=== PATIENT | male | born 1940 | race Caucasian/White ===

== ENCOUNTER 2017-04-04 10:07 | Day surgery (SDC) | payer OTHER ==
[~2017-04-04] VITALS: Ht 177.8 cm; Wt 90.8 kg
[~2017-04-04 10:07] MED LIST: ALLO300 PO; ASCO500 PO; ASPI81EC PO; CIPR500 PO; ERGO400 PO; EZET10; FENO145 PO; GLIM2 PO; LISI20 PO; LOPE2C PO; METF500 PO; MULVITMIND PO; Omeprazole20 M1 PO; SIMV20 PO; VITAMIN B122500 MCG PO
== END 2017-04-04 12:26 | disposition home or self-care (01) ==
LOC: ORSCSDS 10:07
PROVIDERS: Surgery
PROC: 0DBL8ZX Excision of Transverse Colon, Via Natural or Artificial Opening Endoscopic, Diagnostic (ICD-10-PCS; principal; 2017-04-04 11:30)
DX: Z12.11 Encounter for screening for malignant neoplasm of colon (principal); Z86.010 Personal history of colon polyps; D37.4 Neoplasm of uncertain behavior of colon; K64.8 Other hemorrhoids; E11.9 Type 2 diabetes mellitus without complications; I10 Essential (primary) hypertension; Z79.82 Long term (current) use of aspirin; Z79.899 Other long term (current) drug therapy
CPT/HCPCS: 82947; J7120

== ENCOUNTER → 2018-02-28 | Outpatient (CLI) | payer OTHER | LOC: LAB EV 11:38 → LAB SHORT 11:38 | DX: J06.9 Acute upper respiratory infection, unspecified (principal) | CPT/HCPCS: 87070 ==

== ENCOUNTER → 2021-01-27 | Outpatient (CLI) | payer OTHER | END | disposition home or self-care (01) | LOC: LAB SHORT 12:29 | DX: D48.5 Neoplasm of uncertain behavior of skin (principal) | CPT/HCPCS: 88305 ==

== ENCOUNTER → 2021-11-16 | Outpatient (CLI) | payer OTHER | END | disposition home or self-care (01) | LOC: LAB SHORT 07:32 → PLD 07:32 | DX: B35.1 Tinea unguium (principal); L60.2 Onychogryphosis | CPT/HCPCS: 88305; 88312 ==

== ENCOUNTER 2022-11-24 13:08 | Day surgery (SDC) | payer OTHER ==
[~2022-11-24] VITALS: Ht 177.8 cm; Wt 89.0 kg
[2022-11-24] MEDS ORDERED: ALLOPURINOL100 M1 PO (13:31)
[2022-11-24] MEDS ORDERED: PIOGLITAZONE HC15 MG PO (13:32)
[2022-11-24] MEDS ORDERED: METOPROLOL SUCC25 MG PO (13:32)
[2022-11-24 15:01] VITALS: BP 97/63
== END 2022-11-24 15:03 | disposition home or self-care (01) ==
LOC: ORSCSDS 13:08
PROVIDERS: Surgery
PROC: 0DBM8ZX Excision of Descending Colon, Via Natural or Artificial Opening Endoscopic, Diagnostic (ICD-10-PCS; principal; 2022-11-24 14:15)
DX: Z12.11 Encounter for screening for malignant neoplasm of colon (principal); Z86.010 Personal history of colon polyps; D12.4 Benign neoplasm of descending colon; K64.8 Other hemorrhoids; K21.9 Gastro-esophageal reflux disease without esophagitis; E11.9 Type 2 diabetes mellitus without complications; E78.5 Hyperlipidemia, unspecified; E03.9 Hypothyroidism, unspecified; Z95.0 Presence of cardiac pacemaker; Z79.84 Long term (current) use of oral hypoglycemic drugs; Z79.899 Other long term (current) drug therapy
CPT/HCPCS: 82947; 88305; J2704; J7120

== ENCOUNTER → 2023-10-02 | Outpatient (CLI) | payer OTHER ==
[~2023-10-02] MED LIST changes: +ALLOPURINOL100 M1 PO; +METOPROLOL SUCC25 MG PO; +PIOGLITAZONE HC15 MG PO
== END ==
LOC: LAB 08:15 → LAB SHORT 08:15
DX: B35.1 Tinea unguium (principal); L60.2 Onychogryphosis
CPT/HCPCS: 88305; 88312